=== PATIENT | male | born 1945 | race Caucasian/White ===

== ENCOUNTER 2018-01-26 08:47 | Observation (INO) | payer OTHER ==
[2018-01-26] VITALS (9 sets, daily range): BP systolic 152–197; BP diastolic 78–105; PULSE 56–95; TEMP 36.6–36.8; O2SAT 95–98; Ht 177.8 cm; Wt 96.9 kg
[~2018-01-26] VITALS: Ht 177.8 cm; Wt 96.9 kg
[~2018-01-26 08:47] MED LIST: AMOX500C3 PO; ASPI81TA28 PO; LPT40 OR; NTRGSL4 SL; PRLSR20 PO
[2018-01-26] MEDS ORDERED: MIDAZOLAM HCL 1 MG/ML 2ML VIAL ONE ×2 (10:06→11:49)
[2018-01-26] MEDS ORDERED: HEPARIN SOD (PORCINE) 1000 UNIT/ML 10 ML VIAL ONE ×2 (10:06→11:11)
[2018-01-26] MEDS ORDERED: FENTANYL CITRATE INJ 50 MCG/1 ML 2 ML VIAL ONE ×2 (10:06→11:49)
[2018-01-26] MEDS ORDERED: NiCARDipine HCL INJ 2.5 MG/ML 10 ML AMP ONE (10:07)
[2018-01-26] MEDS ORDERED: NITROGLYCERIN/D5W 100MCG/ML 20ML SYR ONE (10:08)
[2018-01-26] MEDS ORDERED: LIDOCAINE HCL 1% 20 ML VIAL ONE (10:17)
--- NOTE | 2018-01-26 12:46 | History & Physical Bridge Note ---
H&P Re-Evaluation Bridge Note: I have examined the patient, reviewed the History & Physical and in the interval since the performance of the History & Physical I have noted the following changes of clinical significance: No changes noted
--- NOTE | 2018-01-26 12:47 | Pre Sedation Assessment ---
Pre Sedation Assessment General Date of Sedation: Jan 26, 2018. Vital Signs Past 12 Hours Date Time Temp Pulse Resp B/P (MAP) Pulse Ox O2 Delivery O2 Flow Rate FiO2 01/26/18 12:37 53 16 101/61 (74) 99 Mask 6 01/26/18 09:08 36.8 61 18 178/78 (111) 95 Room Air Review Cardiovascular: regular rate, rhythm, no edema Lungs: chest non-tender, lungs clear Pre-Sedation Airway Assessment Smoking Status: Never Smoker Hx of Sleep Apnea: No Hx of difficult intubation: No Short Thick Neck: No Oral Cavity: WNL Mallampati Classification: Class III ASA Classification: Class III Procedure Planning Contraindications for Sedation: None Current Medications Reviewed: Yes Notes The planned sedation has been discussed with the patient. Informed Consent was obtained. I have identified the patient, determined the appropriateness of sedation and have assessed the patient immediately prior to the procedure. All medicine(s) and interventions are by my order.
--- NOTE | 2018-01-26 12:47 | Post Sedation Assessment ---
Post Sedation Assessment General Date of Sedation Jan 26, 2018. Vital Signs: Vital Signs Past 12 Hours Date Time Temp Pulse Resp B/P (MAP) Pulse Ox O2 Delivery O2 Flow Rate FiO2 01/26/18 12:37 53 16 101/61 (74) 99 Mask 6 01/26/18 09:08 36.8 61 18 178/78 (111) 95 Room Air Post Procedure Recovery Score Activity: (2) Moves 4 extremities * Respiration: (2) Deep breath/cough Circulation: (2) +/-20% PreAnes Value Consciousness: (2) Fully Awake Oxygen Saturation: (2) > 92% On Room Air Post Anesthesia Score: 10 Discharge Sedation Level of Care: Fast Track Phase II Post Sedation Plan On clinical assessment, the patient appears to have tolerated the sedation without complications. Patient is recovering as anticipated. Patient will continue to be monitored by nursing and may be discharged when sedation discharge criteria are met per below protocol. Upon Completions of procedure and additional 15 minutes continue every 5 minute vital signs and the P.A.R. score; then discharge to a Phase I or Fast Track to Phase II per the following guidelines: * Discharge Patient to appropriate Phase II area if PAR is 8 or greater or return to pre- procedure baseline. The post - procedure orders will be as directed. * If PAR score is less than 8 or not return to pre-procedure baseline then patient will follow Phase I monitoring till PAR is reached for Phase II. The Phase I may be done in procedure room or may call to secure a Phase I area. * If naloxone or flumazenil are used for reversal, hold in Phase I for an additional 60 -120 minutes before discharge to Phase II. Please call the Sedation Physician to re-evaluate and complete post-note for discharge to Phase II area. Do NOT discharge from procedure sedation or Phase 1 until post- sedation evaluation note is complete by procedure /sedation MD Sedation Discharge Instructions to be given to the patient at discharge to home.
[2018-01-26] MEDS ORDERED: CLOPIDOGREL BISULFATE 300 MG TAB PO ONE (12:57)
[2018-01-26] MEDS ORDERED: SODIUM CHLORIDE 0.9% 1000ML 1,000 ML IV SCH (13:00)
[2018-01-26] MEDS ORDERED: ACETAMINOPHEN 325 MG TAB PO PRN (13:00)
[2018-01-26] MEDS ORDERED: NITROGLYCERIN 0.4 MG SL PER TAB CHARGE SL PRN (13:00)
[2018-01-26] MEDS ORDERED: ONDANSETRON INJ 2 MG/ML 2 ML VIAL IV PRN (13:00)
--- NOTE | 2018-01-26 13:15 | Cardiac Catheterization ---
Procedure Note Procedure Date Jan 26, 2018. Pre-Procedure Diagnosis Angina, Positive Stress Test AUC Score 7 Post-Procedure Diagnosis Severe CAD, Successful PCI Procedure(s) Performed Drug Eluting Stent, IVUS Licensed Psychiatric Technician Willard Director Of [employer] Talent(s) Deangelo Estimated Blood Loss 20 Medication(s) Clopidogrel, Fentanyl, Heparin, Nicardipine, Nitroglycerin, Versed, Lidocaine 1% Summary of Findings Indication: CCS class 3 angina; positive stress test Access: 6 FR right radial artery Catheters: EBU 3.75 guide Findings: For full details of patient's coronary angiography please cath report dictated by Dr. Rosen. Briefly, patient found to have multi vessel disease including a 95 % stenosis involving the proximal 1st obtuse marginal, with severe diffuse proximal to mid LAD disease. Decision to proceed with PCI of OM and LAD. -- PCI -- Antithrombotic therapy: Heparin, clopidogrel Procedure: Left main cannulated with EBU 3.75 guide BMW wire passed across lesion into distal obtuse marginal Proximal obtuse marginal lesion predilated with 2.0 compliant balloon Dilated lesion stented with 2.25 by 12 millimeter jacquelyn drug-eluting stent Stent post-dilated with stent balloon -- stent well expanded with minimal residual stenosis and no apparent cardiac complications. BMW wire removed from circumflex and placed into 2nd diagonal Prowater wire placed into distal LAD IVUS used to assess extent of disease, degree of calcification and for sizing of vessel--found to have severe mildly calcified disease distal to 2nd diagonal. Diffuse moderate to severe disease up to 70 percent with moderate calcification from proximal to mid LAD. Mid LAD dilated with 2.5 compliant balloon 2.75 x 26 millimeter Jacquelyn drug-eluting stent placed from mid LAD across the 2nd diagonal Stent post dilated with 3.0 NC balloon Wire removed from 2nd diagonal and Automotive Painter 50 wire placed into 1st diagonal Ostium of 1st diagonal dilated with 2.0 compliant balloon Proximal to mid LAD dilated with 2.5 compliant balloon 3.0 by 34 millimeter [place] drug-eluting stent placed from proximal LAD and overlapped distally with prior stent Attempted to rewire 1st diagonal but unsuccessful LAD stents post dilated with 3.5 NC balloon IC vasodilators administered for spasm Postprocedure stents well expanded, residual ostial stenosis in 1st diagonal, no apparent coronary complications. Arterial Closure: TR band Summary: 1. Successful PCI of proximal 1st obtuse marginal with single drug-eluting stent (2.25 x 12 Jacquelyn) 2. 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 Stratton Consult cardiac Rehab Hemodynamics Rest Ao: 130/57/83 Final Ao: 87/40/65 LV: -- Recommendations PCI without planned CABG Specimens None Radiation Exposure (mGy) 7255 (pt counseled on signs/symptoms of radiation toxicity) Contrast (mls) 260 Fluids (cc crystalloids) 205 Drains None Anesthesia Moderate Procedural Complication(s) None Disposition PCU ACC Data Cardiac Status Clinical evaluation leading to the procedure CAD Presntation: Stable angina, Non STEMI Anginal Classification: CCS III Heart Failure: No, NYHA Class: CCS I Cardiogenic Shock w/in 24Hrs: No Cardiac Arrest w/in 24Hrs: No Imaging studies past 6 months: Yes Stress studies past 6 months: Yes Stress Echocardiogram: Yes - Positive Stress Testing w/SPECT MPI: Yes - Unavailable Closure Device Percutaneous Entry Location: Radial Closure Device: Radial Band Recommendations: PCI without planned CABG PCI Indication: Stable Angina Lesion Segment Name: OM1 Culprit Artery: Yes Stenosis Prior to Rx (%): 95 Chronic Total Occlusion: No IVUS: No FFR: No Pre-Procedure KARUNA Flow: 3 Previously Treated Lesion: No Lesion Complexity: Non-High/Non-C Lesion Length (mm): 8 Thrombus Present: No Bifurcation Lesion: No Guidewire Across Lesion: Yes Guidewire: Stenosis Post-Procedure (%): 0 Post-Procedure KARUNA Flow: 3 Device(s) Deployed: Yes Lesion #2 Segment Name: Proximal to mid LAD Culprit Artery: Yes Stenosis Prior to Rx (%): 70-80% Chronic Total Occlusion: No IVUS: Yes FFR: No Pre-Procedure KARUNA Flow: 3 Previously Treated Lesion: No Lesion Complexity: High/C Lesion Length (mm): 50 Thrombus Present: No Bifurcation Lesion: Yes Guidewire Across Lesion: Yes Intraprocedure Events Significant Dissection: No Perforation: No
[2018-01-26] MEDS ORDERED: IV FLUIDS COMPLETED PRN (14:00)
[2018-01-26] MEDS ORDERED: NURSING VERBAL MED ORDER ONE (19:15)
[2018-01-26] MEDS ORDERED: HydrALAZINE HCL 20 MG/ML VIAL IV. ONE (19:30)
[2018-01-26] MEDS: LISINOPRIL 10 MG TAB PO SCH (21:43)
[2018-01-27 00:01] VITALS: BP 138/78; PULSE 86; TEMP 36.6; O2SAT 96
[2018-01-27 04:00] VITALS: BP 120/75; PULSE 82; TEMP 37; O2SAT 96
[2018-01-27 07:24] LABS: BASO % 0.1 %; BASO ABS # 0.01 K/uL (0-0.2); EOS % 0.6 %; EOS ABS # 0.04 K/uL (0-0.5); HEMOGLOBIN 13.9 g/dL (14.0-18.0); IG# 0.02 K/uL (0.00-0.02); LYMPH % 22.2 %; LYMPH ABS # 1.52 K/uL (1.2-3.4); MEAN CELL VOLUME 90.3 fL (80-100); MEAN CORPUSCULAR HEMOGLOBIN 30.6 pg (25-34); MEAN CORPUSCULAR HGB CONC 33.9 g/dl (32-36); MEAN PLATELET VOLUME 9.6 fL (7.4-10.4); MONO % 10.2 %; NEUT % 66.6 %; NEUT ABS # 4.57 K/uL (1.4-6.5); PLATELET COUNT 172 K/uL (130-400); RED CELL DISTRIBUTION WIDTH SD 42.8 fL (36.4-46.3); WHITE BLOOD COUNT 6.86 K/uL (4.8-10.8)
[2018-01-27 07:48] VITALS: BP 145/78; PULSE 90; TEMP 37; O2SAT 96
[2018-01-27 07:57] LABS: CALCIUM 8.5 mg/dl (8.5-10.1); CREATININE 1.19 mg/dl (0.60-1.40); POTASSIUM 3.7 mmol/L (3.5-5.1)
[2018-01-27] MEDS: LISINOPRIL 10 MG TAB PO SCH (08:03)
[2018-01-27] MEDS ORDERED: CLOPIDOGREL BISULFATE 75 MG TAB PO SCH (09:00)
[2018-01-27] MEDS ORDERED: PANTOprazole SOD 40 MG TAB PO SCH (09:00)
[2018-01-27] MEDS ORDERED: ASPIRIN 81 MG ECTAB PO SCH (09:00)
[2018-01-27] MEDS ORDERED: ATORVASTATIN 40 MG TAB PO SCH (09:00)
--- NOTE | 2018-01-27 09:15 | Cardiology Follow-Up ---
Subjective General Date of Service: Jan 27, 2018. Pt evaluation today including: conversation w/ patient, physical exam, chart review, lab review, review of studies, conversation w/ wound care center consultant, review of inpatient medication list History of Present Illness The patient is a 72 year old male seen in follow-up. No recurrent chest discomfort. Offers no complaints this morning. Hypertensive overnight receiving 1 dose of intravenous hydralazine. Blood pressure improved this morning. Offers no complaints. Allergies Coded Allergies: Clindamycin (Unverified Allergy, Unknown, rash, cough, 01/22/18) Social History Smoking Status: Former Smoker Hx Tobacco Use In Past Year?: No Hx Alcohol Use - Type And Amou: Yes (social) Hx Substance Use - Type And Am: No Review of Systems Respiratory: No cough, No sputum, No wheezing, No shortness of breath, No dyspnea at rest, No hemoptysis Cardiac: No chest pain, No orthopnea, No PND, No edema, No claudication, No palpitations Physical Exam Vital Signs Last Vital Signs Documentation Date Time Temp Pulse Resp B/P (MAP) Pulse Ox O2 Delivery O2 Flow Rate FiO2 01/27/18 07:48 37.0 90 16 145/78 (100) 96 Room Air 01/26/18 12:37 6 Physical Exam Constitutional: General Apperance: overweight Level of Distress: NAD Ambulation: ambulating normally Neck: supple, trachea midline Lungs: Auscultation: breath sounds normal, no wheezing, no rales/crackles, no rhonchi Cardiovascular: Heart Auscultation: RRR, normal S1, normal S2, no murmurs Peripheral Pulses: Radial Pulse: normal on the right, pertinent finding (Mild right anterior wrist ecchymosis, no hematoma) Abdomen: Bowel Sounds: normal Inspection & Palpation: soft, non-distended, no tenderness, guarding & rebound Extremities: no cyanosis, no edema, no clubbing, no ulcers Neurologic: Cranial Nerves: grossly intact Assessment and Plan Assessment and Plan Final impression: 1. 72-year-old male admitted for observation after elective percutaneous intervention: -Successful PCI of proximal 1st obtuse marginal with single drug-eluting stent (2.25 x 12 [place]) -Successful PCI of proximal to mid LAD with 2 overlapping drug-eluting stents (3.0 x 34, 2.75 x 26 [place]; post dilated with 3.5 NC) -POBA to ostium of 1st diagonal 2. Dyslipidemia - recently prescribed atorvastatin 3. HTN -uncontrolled Plan/recommendations: Discussed importance of continuing dual antiplatelet therapy uninterrupted for a minimum of 1 year post percutaneous intervention. He will continue moderate dose statin therapy at this time with consideration for titration to 80 mg daily pending follow-up lab studies. Low-dose carvedilol will be added, 3.125 twice daily to improve blood pressure control. Other medications will be continued as previously ordered. He will follow-up with his outpatient automotive design layout drafter, in 2 weeks. Laboratory Results Last 24 Hours Test 01/26/18 10:52 01/26/18 11:25 01/26/18 12:19 01/27/18 06:25 Kaolin Activated Coagulation Time 252 SECONDS 290 SECONDS 241 SECONDS White Blood Count 6.86 K/uL Red Blood Count 4.54 M/uL Hemoglobin 13.9 g/dL Hematocrit 41.0 % Mean Corpuscular Volume 90.3 fL Mean Corpuscular Hemoglobin 30.6 pg Mean Corpuscular Hemoglobin Concent 33.9 g/dl Platelet Count 172 K/uL Mean Platelet Volume 9.6 fL Neutrophils (%) (Auto) 66.6 % Lymphocytes (%) (Auto) 22.2 % Monocytes (%) (Auto) 10.2 % Eosinophils (%) (Auto) 0.6 % Basophils (%) (Auto) 0.1 % Neutrophils # (Auto) 4.57 K/uL Lymphocytes # (Auto) 1.52 K/uL Monocytes # (Auto) 0.70 K/uL Eosinophils # (Auto) 0.04 K/uL Basophils # (Auto) 0.01 K/uL RDW Standard Deviation 42.8 fL RDW Coefficient of Variation 13.0 % Immature Granulocyte % (Auto) 0.3 % Immature Granulocyte # (Auto) 0.02 K/uL Sodium Level 139 mmol/L Potassium Level 3.7 mmol/L Chloride Level 107 mmol/L Carbon Dioxide Level 26 mmol/L Anion Gap 6.0 mmol/L Blood Urea Nitrogen 17 mg/dl Creatinine 1.19 mg/dl Est Creatinine Clear Calc Drug Dose 63.6 ml/min Estimated GFR () 69.3 Estimated GFR (Non- 59.8 BUN/Creatinine Ratio 14.3 Random Glucose 117 mg/dl Calcium Level 8.5 mg/dl
[2018-01-27] MEDS ORDERED: CARVEDILOL 3.125 MG TAB PO ONE ×2 (09:30→10:30)
[2018-01-27] MEDS ORDERED: CRG3125 PO (09:42)
[2018-01-27] MEDS ORDERED: LSN10 PO (09:42)
[2018-01-27] MEDS ORDERED: PLV75 PO (09:42)
--- NOTE | 2018-01-27 09:43 | Discharge Instructions ---
Discharge Instructions Procedure Procedure Date: Jan 27, 2018. Reason for Visit: *Dr Lamar Doing* Chest Pain. Discharge Discharge Date: Jan 27, 2018. Discharge Diagnosis: Coronary artery disease status post drug-eluting stent implantation to the left anterior descending artery, and obtuse marginal branch artery. Last Recorded Wt (Kilograms): 96.900 Anesthesia Post Anesthesia Instructions: If you have had General Anesthesia or IV Sedation: * Do not drive today. * Resume driving when surgeon permits. * Do not make important decisions or sign legal documents today. * Call surgeon for: 1. Temperature elevations greater than 101 degrees F. 2. Uncontrollable pain. 3. Excessive bleeding. 4. Persistent nausea and vomiting. 5. Medication intolerance (nausea, vomiting or rash). * For nausea and vomiting use only clear liquids such as: tea, soda, bouillon until nausea subsides, then gradually increase diet as tolerated. * If you have any concerns or questions, call your surgeon's office. If physician is unavailable and it is an emergency, call 911 or go to the nearest emergency room. Instructions Activity Recommendations: limitations as noted below Return to School/Work: with the following limitations Recommended Home Diet: low sodium, low cholesterol Allergies: Coded Allergies: Clindamycin (Unverified Allergy, Unknown, rash, cough, 01/22/18) Provider Instructions ACTIVITY RECOMMENDATIONS: It is common to feel weak and fatigue for a few days. * Do not drive or operate any motorized equipment for the next three days. * Limit stair usage (2 or 3 trips a day only) for the next three days. * Do not lift anything heavier than 10 pounds for the next three days. * Do not engage in vigorous exercise or any sports for the next five days. * You may shower the day after your procedure, but do not immerse the area for three days. Cleanse the site gently with soap and water. SPECIAL CARE INSTRUCTIONS: * You may replace the pressure dressing or band-aid the morning after the procedure. * After your procedure, it is normal to have a small bruise or small lump at the site. Examine your site daily for any change in the bruise or lump, redness, swelling, drainage or numbness. Notify your doctor if any change. BLEEDING: * If there is a small amount of bleeding at the site, lie down and apply firm pressure with a clean cloth for ten minutes. When the bleeding stops, lie quietly keeping the procedure limb straight for six hours. Notify your doctor as soon as possible. * If the bleeding does not stop after ten minutes or if there is a large amount of bleeding or spurting, call 911 immediately. Continue to lie down and hold firm pressure until help arrives. SKIN IRRITATION: * You may experience some redness and/or swelling in the area where radiation was administered. If any skin irritation occurs, please contact your family physician. FOLLOW UP VISIT: Keep any scheduled doctor appointments. Follow Up Follow-up with: Dr. Lujan in 2 weeks. Tonio Franky Recommendations: Call your doctor if: * Temperature above 101 degrees * Pain not relieved by pain medicine ordered * There is increased drainage or redness from any incision * You have any unanswered questions or concerns. Your Doctors Instructions noted above were prepared by provider Grover Stratton. Patient Signature Section: Patient Instructions Signature Page Rhiannon Fortune Patient (or Guardian) Signature/Date: I have read and understand the instructions given to me by my caregivers. Caregiver/RN/Doctor Signature/Date: The above-named patient and/or guardian has received patient instructions on this date. + Original Patient Signature Page (only) stays with chart. Please make copy for patient.
[2018-01-27 09:45] VITALS: BP 145/78; PULSE 90; TEMP 37; O2SAT 96
[2018-01-27] MEDS ORDERED: CARVEDILOL 3.125 MG TAB PO SCH ×2 (11:00→21:00)
--- NOTE | 2018-01-27 14:26 | DISCHARGE SUMMARY ---
ADMISSION DIAGNOSES: 1. Unstable angina. 2. Obstructive coronary disease. 3. Dyslipidemia. 4. Hypertension. DISCHARGE DIAGNOSES: 1. Coronary artery disease, status post drug-eluting stent implantation x3 to the LAD, status post drug-eluting stent implantation to the OM1. 2. Dyslipidemia. 3. Hypertension. ADMISSION MEDICATIONS: 1. Aspirin 81 mg daily. 2. Atorvastatin 40 mg daily. 3. Sublingual nitroglycerin as needed. DISCHARGE MEDICATIONS: 1. Aspirin 81 mg daily. 2. Plavix 75 mg daily. 3. Carvedilol 3.125 mg twice daily. 4. Atorvastatin 40 mg daily. 5. Lisinopril 10 mg daily. 6. Sublingual nitroglycerin as needed. CONSULTATIONS DURING ADMISSION: Dr. Anjum Lamar, interventional cardiology. PROCEDURES: Coronary intervention with drug-eluting stent implantation x3 to the LAD, drug-eluting stent implantation x1 to OM via radial approach. Please see separate report for details. HOSPITAL COURSE: The patient was brought to the catheterization lab, 01/26/2018 for elective PCI. Procedure performed via right radial approach. Three drug-eluting stents were implanted to the LAD, 1 stent to the OM off of the circumflex. The procedure was uncomplicated. The patient prescribed Plavix. The patient instructed to continue dual antiplatelet therapy for minimum of 1 year uninterrupted. Recently prescribed atorvastatin on 01/22/2018. Uncontrolled blood pressure noted during hospitalization. Lisinopril restarted, patient previously taking as an outpatient. Low dose carvedilol, 3.125 mg twice daily added. Blood pressure improved prior to discharge. Please note this is a discharge summary. May contain errors and omissions. Please refer to the full body of the medical record concerning details of hospitalization.
== END 2018-01-27 11:00 | disposition home or self-care (01) ==
LOC: C.CATH 08:47 → C.2T 12:59 → ENRESERV 13:06
PROVIDERS: ADMIT Internal Medicine Cardiovascular Disease; ATTEND Internal Medicine Cardiovascular Disease
DX: I25.110 Atherosclerotic heart disease of native coronary artery with unstable angina pectoris (principal); I10 Essential (primary) hypertension; I05.1 Rheumatic mitral insufficiency; K21.9 Gastro-esophageal reflux disease without esophagitis; E78.5 Hyperlipidemia, unspecified; Z86.2 Personal history of diseases of the blood and blood-forming organs and certain disorders involving the immune mechanism; Z79.899 Other long term (current) drug therapy; Z87.891 Personal history of nicotine dependence; Z95.2 Presence of prosthetic heart valve; Z98.890 Other specified postprocedural states; Z79.82 Long term (current) use of aspirin